=== PATIENT | male | born 1955 | race African-American/Black ===

== ENCOUNTER 2016-07-18 08:25 | Emergency (ER) | payer MEDICAID ==
[~2016-07-18] VITALS: Ht 182.9 cm; Wt 91.0 kg
[2016-07-18] MEDS ORDERED: CARI350T PO (08:38)
[2016-07-18] MEDS ORDERED: AMLO10TA80 PO (08:38)
[2016-07-18] MEDS ORDERED: HYDROCODONE/ACETAMINOPHEN 5/325MG TABLET PO ONE (10:00)
[2016-07-18 11:27] VITALS: BP 165/99
== END 2016-07-18 12:04 | disposition home or self-care (01) ==
LOC: ER 08:25
DX: S20.211A Contusion of right front wall of thorax, initial encounter (principal); S16.1XXA Strain of muscle, fascia and tendon at neck level, initial encounter; I10 Essential (primary) hypertension; F17.210 Nicotine dependence, cigarettes, uncomplicated; F12.10 Cannabis abuse, uncomplicated; W01.0XXA Fall on same level from slipping, tripping and stumbling without subsequent striking against object, initial encounter; Y93.89 Activity, other specified; Y92.89 Other specified places as the place of occurrence of the external cause
CPT/HCPCS: 70450; 71010; 72125; 99284